=== PATIENT | female | born 1990 | race Asian ===

== ENCOUNTER → 2016-10-11 | Outpatient (CLI) | payer OTHER ==
[~2016-10-11] MED LIST: IBUP60TA PO; TYLE650T30 PO; VITAPRTA PO
--- NOTE | 2016-10-12 04:52 | REP ---
Clinical: Bilateral lower extremity pain. Technique: Lees scale and color Doppler evaluation using linear high frequency transducer including reflux evaluation. Findings: Ultrasound examination of the right and left lower extremity deep venous structures from the common femoral vein to the popliteal vein demonstrates normal compressibility flow and wave patterns in response to respiration and augmentation. There is no evidence for deep venous thrombosis. Evaluation for reflux demonstrates normal right lower extremity venous structures without reflux. The left lower extremity demonstrates reflux through the greater saphenous vein at the saphenofemoral junction dilated to 6 mm with duration of 3.5 seconds, in the mid thigh dilated to 5.3 mm with duration of 1.7 seconds, and at the level of the knee dilated to 5.7 mm with duration of 2.2 seconds. To small collaterals along the proximal left mid thigh are incidentally noted. Impression: No evidence for deep venous thrombosis laterally. Mild reflux disease noted through the greater saphenous vein. Signed by Hany Khan MD 10/12/2016 04:43 A
== END ==
LOC: M RAD 12:40
PROVIDERS: ATTEND Surgery Vascular Surgery
DX: M79.604 Pain in right leg (principal); M79.605 Pain in left leg